=== PATIENT | male | born 1950 | race Native Hawaiian/Other Pacific Islander ===

== ENCOUNTER 2020-07-25 14:54 | Outpatient (CLI) | payer OTHER ==
[2020-07-25 15:28] LABS: PLATELET COUNT 247 K/uL (142-355)
[2020-07-25 15:56] LABS: POTASSIUM 4.2 mmol/L (3.6-5.2)
== END 2020-07-25 21:41 | disposition home or self-care (01) ==
LOC: LAB 14:54
PROVIDERS: ATTEND Nurse Practitioner Family
DX: Z00.00 Encounter for general adult medical examination without abnormal findings (principal); Z79.899 Other long term (current) drug therapy; I10 Essential (primary) hypertension; M19.90 Unspecified osteoarthritis, unspecified site; N52.8 Other male erectile dysfunction; N40.0 Benign prostatic hyperplasia without lower urinary tract symptoms; E53.8 Deficiency of other specified B group vitamins; E55.9 Vitamin D deficiency, unspecified
CPT/HCPCS: 80053; 80061; 82306; 82607; 83036; 84153; 84403; 84439; 84443; 85027